=== PATIENT | female | born 1980 | race Caucasian/White ===

== ENCOUNTER 2016-06-19 23:00 | Emergency (ER) | payer MEDICAID ==
[~2016-06-19] VITALS: Ht 162.6 cm; Wt 65.3 kg
[~2016-06-19 23:00] MED LIST: PRENATAL1 TA6
[2016-06-19 23:12] VITALS: BP 104/71
--- NOTE | 2016-06-20 00:34 | NUR ---
TO ER BED 5
--- NOTE | 2016-06-20 00:40 | NUR ---
35Y F BIB NIECE C/O OF ABD PAIN, DENIES N/V. PAIN 9/10 IN SCALE THAT STARTED LAST NIGHT AROUND 8PM. V/S WNL.
[2016-06-20 02:15] VITALS: BP 104/71
--- NOTE | 2016-06-20 02:15 | NUR ---
Patient discharged with v/s stable. Written and verbal after care instructions given and explained. Patient verbalized understanding. Ambulatory with to car. All questions addressed prior to discharge. Advised to follow up with PMD.
== END 2016-06-20 02:15 | disposition home or self-care (01) ==
LOC: MED 23:00
DX: O26.891 Other specified pregnancy related conditions, first trimester (principal); R10.30 Lower abdominal pain, unspecified; R03.0 Elevated blood-pressure reading, without diagnosis of hypertension; Z3A.12 12 weeks gestation of pregnancy

== ENCOUNTER 2016-07-28 15:18 | Emergency (ER) | payer MEDICAID ==
[~2016-07-28] VITALS: Ht 162.6 cm; Wt 66.9 kg
[2016-07-28 15:35] VITALS: BP 114/72
--- NOTE | 2016-07-28 18:22 | NUR ---
Patient to bed 5 at this time.
--- NOTE | 2016-07-28 18:39 | NUR ---
35/F PRESENTS TO ED FOR EVALUATION OF LEFT SIDE HEADACHE, LEFT JAW PAIN, LEFT FACE X3 DAYS. PT STATES SHE WENT TO SEE HER DENTIST ON WEDNESDAY AND THEY TOLD HER SHE DOES NOT HAVE ANY INFECTION. PATIENT C/O 8/ PAIN. PT DENIES DIZZINESS OR SYNCOPE. PT DENIES CHANGES IN VISION. PT IS AOX4, SYRIAC SPEAKING. VSS.
--- NOTE | 2016-07-28 18:40 | NUR ---
Patient being evaluated by physician at bedside.
[2016-07-28] MEDS ORDERED: diphenhydrAMINE 50 MG/ML VIAL IM ONE (18:45)
[2016-07-28] MEDS ORDERED: PROCHLORPERAZINE 10 MG/2 ML VIAL IM ONE (18:45)
[2016-07-28] MEDS ORDERED: ACETAMINOPHEN EXTRA STRENGTH 500 MG TAB PO ONE (18:45)
--- NOTE | 2016-07-28 19:10 | NUR ---
Pt report given to Moni ALVARADO. Transfer of care at this time.
[2016-07-28 19:35] VITALS: BP 120/58
--- NOTE | 2016-07-28 19:35 | NUR ---
Patient discharged with v/s stable. Written and verbal after care instructions given and explained. Patient alert, oriented and verbalized understanding of instructions. Ambulatory with steady gait. All questions addressed prior to discharge. ID band removed. Patient advised to follow up with PMD. Rx of COMPAZINE AND BENADRYL given. Patient educated on indication of medication including possible reaction and side effects. Opportunity to ask questions provided and answered.
== END 2016-07-28 19:35 | disposition home or self-care (01) ==
LOC: MED 15:18
DX: O26.892 Other specified pregnancy related conditions, second trimester (principal); R51 Headache; Z3A.17 17 weeks gestation of pregnancy
CPT/HCPCS: 70450; 76801; 81002; 81025; 96372; 99284; J0780; J1200

== ENCOUNTER 2017-02-26 15:47 | Emergency (ER) | payer MEDICAID ==
[~2017-02-26] VITALS: Ht 162.6 cm; Wt 70.8 kg
[2017-02-26 16:32] VITALS: BP 117/62
--- NOTE | 2017-02-26 19:20 | NUR ---
PATIENT LEFT WITHOUT BEING SEEN BY DR. COLES. NO FURTHER CARE PROVIDED FOR PATIENT.
== END 2017-02-26 19:20 | disposition left against medical advice (07) ==
LOC: MED 15:47
DX: R51 Headache (principal); Z53.21 Procedure and treatment not carried out due to patient leaving prior to being seen by health care provider

== ENCOUNTER 2017-03-03 21:05 | Emergency (ER) | payer MEDICAID ==
[~2017-03-03] VITALS: Ht 162.6 cm; Wt 69.4 kg
[2017-03-03 21:09] VITALS: BP 141/82
--- NOTE | 2017-03-03 21:55 | NUR ---
Patient being evaluated by Dr. Cope at bedside.
[2017-03-04] MEDS ORDERED: DEXAMETHASONE 10 MG/ML VIAL IM ONE (00:55)
[2017-03-04 01:49] VITALS: BP 111/66
== END 2017-03-04 01:49 | disposition home or self-care (01) ==
LOC: MED 21:05
DX: J02.9 Acute pharyngitis, unspecified (principal)
CPT/HCPCS: 36415; 87081; 87804; 96372; 99284; J1100

== ENCOUNTER 2018-11-15 14:17 | Emergency (ER) | payer OTHER ==
[~2018-11-15] VITALS: Ht 162.6 cm; Wt 62.2 kg
[2018-11-15 14:28] VITALS: BP 110/74
--- NOTE | 2018-11-15 14:37 | NUR ---
PT TO LOBBY
--- NOTE | 2018-11-15 14:47 | NUR ---
TO BED 9 WITH STEADY GAIT
--- NOTE | 2018-11-15 15:01 | NUR ---
BIB SELF C/O HEADACHE, DIZZINESS, AND PHOTOPHOBIA X 0600. DENIES N/V. DISCOMFORT UPON SWALLOWING X 3 WEEKS, BURNING URINATION X 9 DAYS. FINISHED UTI ABX YESTERDAY. UC CALLED PT YESTERDAY TO RETURN DUE TO BACTERIA IN URINE. DENIES ABD PAIN/BACK PAIN. A&OX4, CLEAR SPEECH, NO WEAKNESS, NO FACIAL DROOP, AMBULATES WITH STEADY GAIT. HX: LUPUS, SJOGREN'S SYNDROME RX: DENIES
[2018-11-15] MEDS ORDERED: NACL 0.9% 1,000 ML IV ONE (15:25)
[2018-11-15] MEDS ORDERED: PROCHLORPERAZINE 10 MG/2 ML VIAL IVP ONE (15:25)
[2018-11-15] MEDS ORDERED: KETOROLAC 30 MG/ML VIAL IVP ONE (15:25)
[2018-11-15] MEDS ORDERED: cefTRIAXone 500 MG in LIDOCAINE MPF 1% - 5 mL VIAL 1 ML IM ONE (16:55)
[2018-11-15 17:10] LABS: APPEARANCE,URINE CLEAR (CLEAR); BILIRUBIN,URINE NEGATIVE (NEGATIVE); BLOOD, URINE NEGATIVE (NEGATIVE); COLOR,URINE YELLOW (YELLOW); LEUKOCYTE ESTERASE ,URINE NEGATIVE (NEGATIVE); NITRITE, URINE NEGATIVE (NEGATIVE); UGLUCOSE NEGATIVE (NEGATIVE)
[2018-11-15 17:19] VITALS: BP 112/72
--- NOTE | 2018-11-15 17:19 | NUR ---
Patient discharged with v/s stable. Written and verbal after care instructions given and explained. Patient alert, oriented and verbalized understanding of instructions. Ambulatory with steady gait. All questions addressed prior to discharge. ID band removed. Patient advised to follow up with PMD. Rx of Bactrim and Tylenol given. Patient educated on indication of medication including possible reaction and side effects. Opportunity to ask questions provided and answered.
== END 2018-11-15 17:19 | disposition home or self-care (01) ==
LOC: MED 14:17
DX: G44.209 Tension-type headache, unspecified, not intractable (principal); N39.0 Urinary tract infection, site not specified; R42 Dizziness and giddiness
CPT/HCPCS: 81003; 81025; 87086; 96361; 96372; 96374; 96375; 99283; J0696; J0780; J1885; J2001; J7030

== ENCOUNTER 2019-02-20 18:43 | Emergency (ER) | payer OTHER ==
[~2019-02-20] VITALS: Ht 162.6 cm; Wt 62.1 kg
[2019-02-20 18:47] VITALS: BP 119/89
--- NOTE | 2019-02-20 19:27 | NUR ---
PT AMBULATED TO BED 12 WITH STEADY GAIT.
--- NOTE | 2019-02-20 19:33 | NUR ---
Lilliana albert in ED - 02/20/19 at 1938 by BONNIE PT TAKEN TO XRAY
--- NOTE | 2019-02-20 19:38 | NUR ---
38 Y/O FEMALE FROM HOME WITH C/O RIGHT LOWER QUADRANT PAIN X1 DAY. ABD SOFT, ROUND, TENDER TO PALP. BOWEL SOUNDS PRESENT X4 QUADRANTS. PT C/O NAUSEA. DENIES VOMITING AND DIARRHEA. LAST BM AT NOON. DENIES FEVER/CHILLS. PT SEEN AT URGENT CARE PRIOR TO ER AND WAS TOLD TO COME TO ER TO RULE OUT APPENDICITIS. RR EVEN AND UNLABORED. PT SITTING IN BED WITH FAMILY AT BEDSIDE. VSS. MEDHX: LUPUS ALLERGIES: IBURPROFEN, AMOXICILLIN.
--- NOTE | 2019-02-20 19:41 | NUR ---
URINE COLLECTED FROM PT.
[2019-02-20] MEDS ORDERED: NACL 0.9% 1,000 ML IV ONE (20:40)
[2019-02-20] MEDS ORDERED: MORPHINE SULFATE 2 MG/ML SYR IVP ONE (20:40)
[2019-02-20] MEDS ORDERED: ONDANSETRON 4 MG/2 ML VIAL IVP ONE (20:40)
--- NOTE | 2019-02-20 20:54 | NUR ---
IV INSERTED, NS BOLUS STARTED. MORPHINE AND ZOFRAN ADMINISTERED IVP
--- NOTE | 2019-02-20 20:56 | NUR ---
LAB AT BEDSIDE
--- NOTE | 2019-02-20 20:58 | NUR ---
US AT BEDSIDE
[2019-02-20 21:15] LABS: BASOPHILS % (AUTO) 0.4 % (0.0-2.0); EOSINOPHILS # (AUTO) 0.1 K/uL (0-0.4); EOSINOPHILS % (AUTO) 1.7 % (0.0-4.0); HEMATOCRIT 40.8 % (36-48); HEMOGLOBIN 13.4 g/dL (12.0-16.0); LYMPHOCYTES # (AUTO) 1.7 K/uL (2.5-16.5); LYMPHOCYTES % (AUTO) 29.7 % (20.5-51.1); MEAN CORPUSCULAR HEMOGLOBIN 28 pg (27-31); MEAN CORPUSCULAR HGB CONC 33 g/dL (33-37); MEAN CORPUSCULAR VOLUME 85.6 fL (80-94); MONOCYTES # (AUTO) 0.4 K/uL (0.8-1.0); MONOCYTES % (AUTO) 7.7 % (1.7-9.3); NEUTROPHILS # (AUTO) 3.4 K/uL (1.8-7.7); NEUTROPHILS % (AUTO) 60.5 % (42.2-75.2); PLATELET COUNT (AUTO) 205 K/uL (140-450); RED BLOOD CELL COUNT(AUTO) 4.77 MIL/uL (4.20-5.40); RED CELL DISTRIBUTION WIDTH 13.3 % (11.6-13.7); WHITE BLOOD COUNT (AUTO) 5.7 K/uL (4.8-10.8)
[2019-02-20 21:33] LABS: ALBUMIN 4.1 g/dL (3.4-5.0); ANION GAP 13.9 (8-16); CARBON DIOXIDE 26.7 mmol/L (21-32); CREATININE 0.7 mg/dL (0.6-1.3); POTASSIUM 3.6 mmol/L (3.5-5.1); TOTAL BILIRUBIN 0.3 mg/dL (0.0-1.0)
--- NOTE | 2019-02-20 21:37 | NUR ---
PT RESTING IN BED IN COMFORTABLE POSITION, BED LOCKED AND IN LOW POSITION, VSS. WILL CONTINUE TO MONITOR.
[2019-02-20 23:44] VITALS: BP 100/53
--- NOTE | 2019-02-20 23:44 | NUR ---
Patient discharged with v/s stable. Written and verbal after care instructions given and explained. Patient alert, oriented and verbalized understanding of instructions. Ambulatory with steady gait. All questions addressed prior to discharge. ID band removed. Patient advised to follow up with PMD. Rx of ZOFRAN ODT, MOTRIN given. Patient educated on indication of medication including possible reaction and side effects. Opportunity to ask questions provided and answered.
== END 2019-02-20 23:44 | disposition home or self-care (01) ==
LOC: MED 18:43
DX: R10.2 Pelvic and perineal pain (principal); Z88.0 Allergy status to penicillin; Z88.6 Allergy status to analgesic agent
CPT/HCPCS: 36415; 74018; 76705; 76830; 80053; 81002; 81025; 85025; 96374; 96375; 99284; J2270; J2405; J7030; Q0092

== ENCOUNTER 2020-03-05 20:19 | Emergency (ER) | payer OTHER ==
[~2020-03-05] VITALS: Ht 162.6 cm; Wt 75.7 kg
[2020-03-05 20:25] VITALS: BP 102/70
--- NOTE | 2020-03-05 20:31 | NUR ---
PT TAKEN TO BED 4
--- NOTE | 2020-03-05 20:36 | NUR ---
39 Y/O FEMALE C/O RASHES ALL OVER HER BODY WITH BLISTER FOR 2 DAYS. PT STATES 6/10 BURNING PAIN. PT SATES SHE WENT TO AN URGENT CARE, IN WHICH THEY STATED SHE HAD INFECTION ON HER BLISTERS. BLISTERS NOTED ON R/L ARMS. RED RASHES NOTED THROUGHOUT THE BODY. MEDHX: LUPUS ALLERGIES: AMOXICILLIN, IBUPROFEN.
--- NOTE | 2020-03-05 20:55 | NUR ---
ERMD AT BEDSIDE EVALUATING PT
[2020-03-05 21:27] VITALS: BP 132/69
--- NOTE | 2020-03-05 21:28 | NUR ---
Patient discharged with v/s stable. Written and verbal after care instructions given and explained. Patient alert, oriented and verbalized understanding of instructions. Ambulatory with steady gait. All questions addressed prior to discharge. ID band removed. Patient advised to follow up with PMD. Rx of PREDNISONE AND BENADRYL given. Patient educated on indication of medication including possible reaction and side effects. Opportunity to ask questions provided and answered.
== END 2020-03-05 21:28 | disposition home or self-care (01) ==
LOC: MED 20:19
DX: R21 Rash and other nonspecific skin eruption (principal); L12.8 Other pemphigoid; Z88.1 Allergy status to other antibiotic agents; Z88.6 Allergy status to analgesic agent
CPT/HCPCS: 99283

== ENCOUNTER 2020-05-31 18:17 | Emergency (ER) | payer OTHER ==
[~2020-05-31] VITALS: Ht 154.9 cm; Wt 73.0 kg
[2020-05-31 18:21] VITALS: BP 113/62
--- NOTE | 2020-05-31 18:36 | NUR ---
39 y/o female referred from urgent care for rule out appendicitis. Pt states RLQ pain x 6 hrs. Denies nausea/vomiting/diarrhea. Afebrile upon arrival. Awake and alert. 8/10 sharp pain to RLQ. VSS medhx: Lupus
[2020-05-31 18:52] LABS: BASOPHILS % (AUTO) 0.5 % (0.0-2.0); EOSINOPHILS # (AUTO) 0.1 K/uL (0-0.4); EOSINOPHILS % (AUTO) 1.1 % (0.0-4.0); HEMATOCRIT 40.1 % (36-48); HEMOGLOBIN 13.1 g/dL (12.0-16.0); LYMPHOCYTES # (AUTO) 1.9 K/uL (2.5-16.5); LYMPHOCYTES % (AUTO) 29.4 % (20.5-51.1); MEAN CORPUSCULAR HEMOGLOBIN 28 pg (27-31); MEAN CORPUSCULAR HGB CONC 33 g/dL (33-37); MEAN CORPUSCULAR VOLUME 84.8 fL (80-94); MONOCYTES # (AUTO) 0.5 K/uL (0.8-1.0); MONOCYTES % (AUTO) 7.2 % (1.7-9.3); NEUTROPHILS % (AUTO) 61.8 % (42.2-75.2); PLATELET COUNT (AUTO) 227 K/uL (140-450); RED BLOOD CELL COUNT(AUTO) 4.72 MIL/uL (4.20-5.40); RED CELL DISTRIBUTION WIDTH 13.1 % (11.6-13.7); WHITE BLOOD COUNT (AUTO) 6.4 K/uL (4.8-10.8)
[2020-05-31 19:40] VITALS: BP 113/62
--- NOTE | 2020-05-31 19:40 | NUR ---
EXAM RESULTS RETURNED, REVIEWED. PT READY FOR DISCHARGE. ARMBAND REMOVED. D/C'D HOME AMBULATORY IN NAD. ACI AND RX TRAMADOL IN POSESSION WITH UNDERSTANDING EXPRESSED
== END 2020-05-31 19:40 | disposition home or self-care (01) ==
LOC: MED 18:17
DX: N20.0 Calculus of kidney (principal); Z88.1 Allergy status to other antibiotic agents; Z88.6 Allergy status to analgesic agent
CPT/HCPCS: 36415; 81002; 81025; 85025; 99284

== ENCOUNTER 2021-02-05 16:57 | Emergency (ER) | payer OTHER ==
[~2021-02-05] VITALS: Ht 162.6 cm; Wt 70.8 kg
[2021-02-05 17:20] VITALS: BP 128/70
--- NOTE | 2021-02-05 17:25 | NUR ---
Patient ambulated to bed 02 with steady/even gait
--- NOTE | 2021-02-05 17:30 | NUR ---
Dr. Lara is evaluating patient at bedside
--- NOTE | 2021-02-05 17:35 | NUR ---
40 y/o F BIB self from home c/o headache + nausea x 1 day that worsened today. Patient A&Ox4, ambulatory, reports left sided headache 8/10, dull/constant, non-radiating pain. Patient states takin Tylenol yesterday without relief to pain. Patient denies vomiting, fever, chills, dysuria, SOB, chest pain, neck pain. Denies any known triggers to headache, states similar episodes of headaches in the past but has never been seen by neurologist for symptoms. Patient placed into a gown. Bed locked in lowest position, side rails x 1, call light in reach. PMH: LUPUS ALLERGY: IBUPROFEN, AMOXICILLIN (HIVES) MED: DENIES Sx: C-sections
[2021-02-05] MEDS: NACL 0.9% 1,000 ML IV ONE (17:44)
[2021-02-05] MEDS: METOCLOPRAMIDE 10 MG/2 ML INJ VIAL IVP ONE (17:45)
[2021-02-05] MEDS: diphenhydrAMINE 50 MG/ML VIAL IVP ONE (17:45)
--- NOTE | 2021-02-05 18:07 | NUR ---
Patient asleep in semi-wall position. Awaken and states she feels better. Denies nausea / headache.
[2021-02-05] MEDS ORDERED: ACET-8386 PO (18:32)
[2021-02-05] MEDS ORDERED: ONDA8TAB87 PO (18:32)
--- NOTE | 2021-02-05 18:37 | NUR ---
Patient discharged with v/s stable. Written and verbal after care instructions given and explained. Patient alert, oriented and verbalized understanding of instructions. Ambulatory with steady gait. All questions addressed prior to discharge. ID band removed. Patient advised to follow up with PMD. Rx of Hydrocodone/Acetaminophen, Zofran given. Patient educated on indication of medication including possible reaction and side effects. Opportunity to ask questions provided and answered.
== END 2021-02-05 18:37 | disposition home or self-care (01) ==
LOC: MED 16:57
DX: R51.9 Headache, unspecified (principal); R11.0 Nausea; Z88.1 Allergy status to other antibiotic agents; Z88.6 Allergy status to analgesic agent; Z98.890 Other specified postprocedural states
CPT/HCPCS: 81002; 96361; 96374; 99284; J1200; J2765; J7030

== ENCOUNTER 2021-04-28 11:59 | Emergency (ER) | payer OTHER ==
[~2021-04-28] VITALS: Ht 162.6 cm; Wt 70.8 kg
[~2021-04-28 11:59] MED LIST changes: +ACET-8386 PO; +ONDA8TAB87 PO; -PRENATAL1 TA6
[2021-04-28 13:37] VITALS: BP 104/54
[2021-04-28] MEDS ORDERED: ACETAMINOPHEN EXTRA STRENGTH 500 MG TAB PO ONE (15:40)
--- NOTE | 2021-04-28 16:11 | NUR ---
40 y/o female, c/o pelvic pain that radiates to lower back for 1 day. denies n/v/d. denies dysuria, hematuria, urinary retention or frequency. denies syncope, loc or head/neck injury. skin is pink/warm/dry. aa&ox4 with even and steady gait. lungs clear bl. hr even and regular, cap refill <3, no edema present at this time. pt denies any fever, cp, sob or cough at this time. patient states pain is 8/10 at this time. ermd made aware of pt status. pmh: lupus allergy: amoxicillin, ibuprofen
[2021-04-28 16:12] LABS: APPEARANCE,URINE CLEAR (CLEAR); BILIRUBIN,URINE NEGATIVE (NEGATIVE); BLOOD, URINE NEGATIVE (NEGATIVE); COLOR,URINE YELLOW (YELLOW); LEUKOCYTE ESTERASE ,URINE NEGATIVE (NEGATIVE); NITRITE, URINE NEGATIVE (NEGATIVE); UGLUCOSE NEGATIVE (NEGATIVE)
[2021-04-28 17:35] VITALS: BP 104/54
--- NOTE | 2021-04-28 17:35 | NUR ---
Patient discharged with v/s stable. Written and verbal after care instructions given and explained. Patient verbalized understanding. Ambulatory with steady gait. All questions addressed prior to discharge. Advised to follow up with PMD.
== END 2021-04-28 17:35 | disposition home or self-care (01) ==
LOC: MED 11:59
DX: N83.202 Unspecified ovarian cyst, left side (principal); Z88.1 Allergy status to other antibiotic agents; Z88.6 Allergy status to analgesic agent; Z79.899 Other long term (current) drug therapy
CPT/HCPCS: 76856; 81003; 81025; 99284

== ENCOUNTER 2021-07-14 08:25 | Emergency (ER) | payer OTHER ==
[~2021-07-14] VITALS: Ht 162.6 cm; Wt 71.8 kg
[2021-07-14 08:30] VITALS: BP 119/84
--- NOTE | 2021-07-14 08:40 | NUR ---
DR JUAN AT BEDSIDE EVALUATING PT
--- NOTE | 2021-07-14 08:42 | NUR ---
40 Y/O Female BIB son for c/o "eye irritation after having eyelash extensions on 07/12" AOX4, able to make needs known. Pt bilat eye sclera is red and watery at this time. Pt denies vision changes, trauma to her eyes. Denies N/V/D/CP at this time. PmHx: hysterrectomy Allergies: PCN, Ibuprofen
[2021-07-14] MEDS ORDERED: traMADol 50 MG TAB PO ONE (08:45)
[2021-07-14] MEDS ORDERED: DEXA5SUS20 OP (08:48)
[2021-07-14] MEDS ORDERED: TRAM50TA1 PO (08:48)
[2021-07-14] MEDS ORDERED: CLIN300C2 PO (08:48)
--- NOTE | 2021-07-14 08:54 | NUR ---
Pt given pain medication per OSMAR Christian order for 4/10 pain in bilat eye irritation. Acceptable pain tolerance is 1/10.
[2021-07-14 09:24] VITALS: BP 119/75
--- NOTE | 2021-07-14 09:24 | NUR ---
Patient discharged with v/s stable. Written and verbal after care instructions given and explained with teachback. Pt pain re-evaluated after medication given with relief 0/10 pain. Patient alert, oriented and verbalized understanding of instructions. Ambulatory with steady gait. All questions addressed prior to discharge. ID band removed. Patient advised to follow up with PMD. Rx of cleocinhcl, maxitrol eye drops, ultram given. Patient educated on indication of medication including possible reaction and side effects with teachback. Opportunity to ask questions provided and answered.
== END 2021-07-14 09:24 | disposition home or self-care (01) ==
LOC: MED 08:25
DX: H20.00 Unspecified acute and subacute iridocyclitis (principal); Z79.899 Other long term (current) drug therapy; Z79.2 Long term (current) use of antibiotics; Z79.891 Long term (current) use of opiate analgesic; Z88.0 Allergy status to penicillin; Z88.6 Allergy status to analgesic agent
CPT/HCPCS: 99283

== ENCOUNTER 2021-10-14 17:26 | Emergency (ER) | payer OTHER ==
[~2021-10-14] VITALS: Ht 162.6 cm; Wt 71.4 kg
[~2021-10-14 17:26] MED LIST changes: +CLIN300C2 PO; +DEXA5SUS20 OP; +TRAM50TA1 PO
[2021-10-14 17:40] VITALS: BP 83/51
[2021-10-14 19:16] LABS: BASOPHILS # (AUTO) 0.1 K/uL (0.00-0.22); BASOPHILS % (AUTO) 1.7 % (0.0-2.0); EOSINOPHILS # (AUTO) 0.1 K/uL (0-0.4); EOSINOPHILS % (AUTO) 1.9 % (0.0-4.0); HEMATOCRIT 40.5 % (36-48); HEMOGLOBIN 13.3 g/dL (12.0-16.0); LYMPHOCYTES # (AUTO) 0.7 K/uL (2.5-16.5); LYMPHOCYTES % (AUTO) 11.6 % (20.5-51.1); MEAN CORPUSCULAR HEMOGLOBIN 27 pg (27-31); MEAN CORPUSCULAR HGB CONC 33 g/dL (33-37); MEAN CORPUSCULAR VOLUME 83.6 fL (80-94); MONOCYTES # (AUTO) 0.5 K/uL (0.8-1.0); MONOCYTES % (AUTO) 7.8 % (1.7-9.3); NEUTROPHILS # (AUTO) 4.8 K/uL (1.8-7.7); PLATELET COUNT (AUTO) 181 K/uL (140-450); RED BLOOD CELL COUNT(AUTO) 4.85 MIL/uL (4.20-5.40); RED CELL DISTRIBUTION WIDTH 13.4 % (11.6-13.7); WHITE BLOOD COUNT (AUTO) 6.2 K/uL (4.8-10.8)
[2021-10-14 19:21] LABS: ALBUMIN 3.9 g/dL (3.4-5.0); ANION GAP 11.2 (8-16); CARBON DIOXIDE 27.4 mmol/L (21-32); CREATININE 0.7 mg/dL (0.6-1.3); POTASSIUM 3.6 mmol/L (3.5-5.1); TOTAL BILIRUBIN 0.2 mg/dL (0.0-1.0)
[2021-10-14] MEDS: NACL 0.9% 1,000 ML IV ONE (19:26)
[2021-10-14 19:28] LABS: APPEARANCE,URINE CLEAR (CLEAR); BILIRUBIN,URINE NEGATIVE (NEGATIVE); BLOOD, URINE TRACE-I (NEGATIVE); COLOR,URINE STRAW (YELLOW); LEUKOCYTE ESTERASE ,URINE NEGATIVE (NEGATIVE); NITRITE, URINE NEGATIVE (NEGATIVE); PH,URINE 5.5 (5.0-9.0); UGLUCOSE NEGATIVE (NEGATIVE)
[2021-10-14 19:29] LABS: RBC,URINE 0-5 /HPF (0-5); WBC,URINE NONE SEEN /HPF (0-5)
--- NOTE | 2021-10-14 19:59 | NUR ---
patient ambulated to the bathroom with a steady gait.
--- NOTE | 2021-10-14 21:50 | NUR ---
patient continuing with abdominal pain even after repositioning. will administer medication.
[2021-10-14] MEDS: fentaNYL citrate 0.05 MG/ML VIAL IVP ONE (21:57)
[2021-10-14] MEDS ORDERED: BEN10 PO (23:25)
[2021-10-15 00:11] VITALS: BP 102/54
--- NOTE | 2021-10-15 00:11 | NUR ---
Patient discharged with v/s stable. Written and verbal after care instructions given ABD PAIN and explained. Patient alert, oriented and verbalized understanding of instructions. Ambulatory with steady gait. All questions addressed prior to discharge. ID band removed. Patient advised to follow up with PMD. Rx of BENTYL given.
== END 2021-10-15 00:11 | disposition home or self-care (01) ==
LOC: MED 17:26
DX: R10.9 Unspecified abdominal pain (principal); R50.9 Fever, unspecified; Z88.1 Allergy status to other antibiotic agents; Z88.6 Allergy status to analgesic agent; Z90.49 Acquired absence of other specified parts of digestive tract; Z98.890 Other specified postprocedural states; Z79.899 Other long term (current) drug therapy
CPT/HCPCS: 36415; 74176; 80053; 81001; 81025; 83690; 85025; 96361; 96374; 99285; J3010; J7030

== ENCOUNTER 2021-12-04 07:57 | Emergency (ER) | payer OTHER ==
[~2021-12-04] VITALS: Ht 162.6 cm; Wt 70.3 kg
[~2021-12-04 07:57] MED LIST changes: +BEN10 PO
[2021-12-04 08:11] VITALS: BP 100/50
--- NOTE | 2021-12-04 08:14 | NUR ---
AMBULATED TO BED 5
[2021-12-04] MEDS ORDERED: ONDANSETRON 4 MG/2 ML VIAL IVP ONE (08:20)
[2021-12-04] MEDS ORDERED: KETOROLAC 30 MG/ML VIAL IVP ONE (08:20)
[2021-12-04] MEDS ORDERED: NACL 0.9% 1,000 ML IV ONE (08:20)
[2021-12-04] MEDS ORDERED: diphenhydrAMINE 50 MG/ML VIAL IVP ONE (08:30)
--- NOTE | 2021-12-04 08:49 | NUR ---
Blood work obtained, handed to CPT Darlyn.
--- NOTE | 2021-12-04 08:54 | NUR ---
41 y/o female bib self with c/o generalized body pain, headache and bilateral eye redness x yesterday. Patient states she took Bactrim last night and symptoms started after taking medication. Patient is on Bactrim due to UTI. Patient has had this happen once before with a different medication. Patient denies fever, chills or SOB. Patient denies being around anyone who is sick. Patient took Tylenol with no relief. Medical History: Lupus ALLERGY: AMOXICILLIN, IBUPROFEN
[2021-12-04 08:57] LABS: BASOPHILS % (AUTO) 0.1 % (0.0-2.0); EOSINOPHILS # (AUTO) 0.1 K/uL (0-0.4); HEMATOCRIT 39.6 % (36-48); LYMPHOCYTES # (AUTO) 0.6 K/uL (2.5-16.5); LYMPHOCYTES % (AUTO) 6.5 % (20.5-51.1); MEAN CORPUSCULAR HEMOGLOBIN 28 pg (27-31); MEAN CORPUSCULAR HGB CONC 33 g/dL (33-37); MEAN CORPUSCULAR VOLUME 83.8 fL (80-94); MONOCYTES # (AUTO) 0.4 K/uL (0.8-1.0); MONOCYTES % (AUTO) 4.6 % (1.7-9.3); NEUTROPHILS # (AUTO) 7.5 K/uL (1.8-7.7); NEUTROPHILS % (AUTO) 87.8 % (42.2-75.2); PLATELET COUNT (AUTO) 190 K/uL (140-450); RED BLOOD CELL COUNT(AUTO) 4.72 MIL/uL (4.20-5.40); RED CELL DISTRIBUTION WIDTH 13.7 % (11.6-13.7); WHITE BLOOD COUNT (AUTO) 8.5 K/uL (4.8-10.8)
[2021-12-04 09:12] LABS: ALBUMIN 3.9 g/dL (3.4-5.0); ANION GAP 12.5 (8-16); CREATININE 0.9 mg/dL (0.6-1.3); POTASSIUM 3.5 mmol/L (3.5-5.1); TOTAL BILIRUBIN 0.4 mg/dL (0.0-1.0)
[2021-12-04] MEDS ORDERED: ONDA-188 PO (09:29)
[2021-12-04] MEDS ORDERED: ACET-10509 PO (09:29)
[2021-12-04] MEDS ORDERED: NITR100C7 PO (09:29)
[2021-12-04 09:47] VITALS: BP 103/53
--- NOTE | 2021-12-04 09:47 | NUR ---
Patient discharged with v/s stable. Written and verbal after care instructions given. Patient alert, oriented and verbalized understanding of instructions. Ambulatory with steady gait. All questions addressed prior to discharge. ID band removed. Patient advised to follow up with PMD. Rx of ACETAMINOPHEN, MACROBID AND ZOFRAN given. Opportunity to ask questions provided and answered. WORK NOTE HANDED TO PATIENT.
--- NOTE | 2021-12-04 09:48 | NUR ---
The patient's care was reviewed and supervised by Amie Pineda RN.
== END 2021-12-04 09:47 | disposition home or self-care (01) ==
LOC: MED 07:57
DX: R51.9 Headache, unspecified (principal); Z79.899 Other long term (current) drug therapy; Z79.891 Long term (current) use of opiate analgesic; Z88.0 Allergy status to penicillin; Z88.6 Allergy status to analgesic agent
CPT/HCPCS: 36415; 80053; 81002; 81025; 85025; 96361; 96374; 96375; 99284; J1200; J1885; J2405; J7030

== ENCOUNTER 2022-11-12 12:53 | Emergency (ER) | payer OTHER ==
[~2022-11-12] VITALS: Ht 162.6 cm; Wt 77.6 kg
[~2022-11-12 12:53] MED LIST changes: +ACET-10509 PO; -ACET-8386 PO; +ACET-8905 PO; +NITR100C7 PO; +ONDA-188 PO; +TRAM-748 PO; -TRAM50TA1 PO
[2022-11-12 13:00] VITALS: BP 107/69; PULSE 85; RESP 20; TEMP 98; O2SAT 95
[2022-11-12] MEDS ORDERED: SUMAtriptan succinate 6 MG/0.5 ML VIAL SUBQ ONE (14:55)
[2022-11-12] MEDS ORDERED: HYDROcodone/APAP 5/325 MG 1 TAB TAB PO ONE (14:55)
--- NOTE | 2022-11-12 15:00 | NUR ---
First contact with pt. Pt bibs for mathews x 4 days that is at posterior of head along with eye pain that is sensitive to light. Eye pain makes headache worse. Pt states she has had this issue before. Had headaches last week that was relieved by tylenol. Pt is a/o x 4, vss, no ss of acute distress, breathing equal and unlabored, speech clear, on monitor.
[2022-11-12] MEDS ORDERED: ACET-8001 PO (15:44)
[2022-11-12 15:57] VITALS: BP 122/79; PULSE 74; RESP 17; O2SAT 98
--- NOTE | 2022-11-12 15:57 | NUR ---
Patient discharged with v/s stable. Written and verbal after care instructions given and explained. Patient alert, oriented and verbalized understanding of instructions. Ambulatory with steady gait. All questions addressed prior to discharge. ID band removed. Patient advised to follow up with PMD. Rx of EXCEDRIN MIGRAINE given. Patient educated on indication of medication including possible reaction and side effects. Opportunity to ask questions provided and answered.
== END 2022-11-12 15:57 | disposition home or self-care (01) ==
LOC: MED 12:53
DX: G43.909 Migraine, unspecified, not intractable, without status migrainosus (principal); R11.0 Nausea; H57.13 Ocular pain, bilateral; Z88.1 Allergy status to other antibiotic agents; Z88.6 Allergy status to analgesic agent; Z79.899 Other long term (current) drug therapy
CPT/HCPCS: 96372; 99283; J3030

== ENCOUNTER 2023-01-11 20:32 | Emergency (ER) | payer OTHER ==
[~2023-01-11] VITALS: Ht 157.5 cm; Wt 67.1 kg
[~2023-01-11 20:32] MED LIST changes: +ACET-8001 PO
[2023-01-11 21:00] VITALS: BP 135/79; PULSE 89; RESP 20; TEMP 97.3; O2SAT 99
[2023-01-12] MEDS ORDERED: HYDROcodone/APAP 5/325 MG 1 TAB TAB PO ONE (00:05)
[2023-01-12] MEDS ORDERED: ACET-10509 PO (00:30)
[2023-01-12 01:11] VITALS: BP 135/79; PULSE 89; RESP 20; TEMP 97.3; O2SAT 99
== END 2023-01-12 01:11 | disposition home or self-care (01) ==
LOC: MED 20:32
DX: S00.83XA Contusion of other part of head, initial encounter (principal); Z79.899 Other long term (current) drug therapy; Z79.2 Long term (current) use of antibiotics; Z88.0 Allergy status to penicillin; Z88.6 Allergy status to analgesic agent; W22.8XXA Striking against or struck by other objects, initial encounter; Y92.009 Unspecified place in unspecified non-institutional (private) residence as the place of occurrence of the external cause; Y93.89 Activity, other specified; Y99.8 Other external cause status
CPT/HCPCS: 70150; 99284